=== PATIENT | female | born 1980 | race Caucasian/White ===

== ENCOUNTER 2016-07-14 08:15 | Emergency (ER) | payer OTHER ==
[2016-07-14 08:26] VITALS: BP 117/73
[2016-07-14] MEDS ORDERED: KETOROLAC TROMETHAMINE 30 MG/ML VIAL IV ONE (08:35)
[2016-07-14] MEDS ORDERED: NORMAL SALINE 1,000 ML in NORMAL SALINE 1,000 ML IV ONE (08:35)
--- NOTE | 2016-07-14 08:41 | ERNOTE ---
Medical Problem HPI - Narrative Date of Service: 07/14/16 - General Chief Complaint: General Assessment Time Seen by Provider: 07/14/16 08:30 Source: patient Exam Limitations: no limitations - Immun/Allergies/Home Medications Immunizations: IMMUNIZATION HX Immunizations Up to Date Yes History of Influenza Vaccine No Hx Pneumococcal Vaccination No Allergies/Adverse Reactions: Allergies hydrocodone bitartrate [From Vicodin] Allergy (Severe, Verified 07/14/16 08:28) low heart rate decreased heart rate strawberry Allergy (Severe, Verified 07/14/16 08:28) Anaphylaxis oxycodone HCl [From Percocet] Allergy (Verified 07/14/16 08:28) Low heart rate low heart rate sulfamethoxazole [From Bactrim] Allergy (Verified 07/14/16 08:28) Shortness of Breath trimethoprim [From Bactrim] Allergy (Verified 07/14/16 08:28) Shortness of Breath Home Medications: HOME MEDICATIONS Albuterol Sulfate [Proair Respiclick] 1 puff INH PRN PRN 02/14/16 [Last Taken Unknown] Acetaminophen [Tylenol] 1,000 mg PO Q6H PRN #0 tablet 02/16/16 [Last Taken Unknown] Budesonide [Pulmicort Flexhaler] 180 mcg IH DAILY 02/16/16 [Last Taken Unknown] Ibuprofen [Motrin] 800 mg PO Q6H PRN #0 tablet 02/16/16 [Last Taken Unknown] Doxycycline Monohydrate 250 mg PO BID 07/14/16 [Last Taken Unknown] L.acidoph & Paracasei,B.lactis [Probiotic] 1 each PO DAILY 07/14/16 [Last Taken Unknown] Ondansetron [Zofran Odt] 4 mg PO Q6H PRN #20 tab 07/14/16 [Last Taken Unknown] - History of Present History Narrative: Pt complains of generalized body aching with nausea and vomiting Timing: intermittent Severity: mild Review of Systems - Review of Systems Constitutional: Present: See HPI, other - pt also having intermittent vaginal bleeding with clotting since giving 4 months ago EYE: Present: no symptoms reported ENT: Present: no symptoms reported Respiratory: Present: no symptoms reported Cardiology: Present: no symptoms reported Gastrointestinal/Abdominal: Present: no symptoms reported Genitourinary: Present: no symptoms reported Musculoskeletal: Present: no symptoms reported Skin: Present: no symptoms reported Neurological: Present: no symptoms reported Endocrine: Present: no symptoms reported Hematologic/Lymphatic: Present: no symptoms reported Psych: Present: no symptoms reported - Patient's Past Medical History Patient History - Medical: No pertinent hx Patient History - Cardiac/Respiratory: No pertinent hx Patient History - Cancer: No Hx of Cancer Patient History - Surgical Procedures: D & C, Other - Social History Living Situations: home Smoking Status: Current every day smoker Have you smoked in the past 12 months: Yes Alcohol Use: none Drug Use: none Physical Exam - Physical Exam General Appearance: Present: wd/wn, alert, mild distress Eye Exam: Normal inspection: bilateral, PERRL: bilateral Ears, Nose, Throat: Present: normal ENT inspection, hearing grossly normal, normal pharynx Neck: Present: normal inspection, nontender Respiratory: Present: no respiratory distress, normal breath sounds, no accessory muscle use, chest nontender, lungs clear Cardiovascular/Chest: Present: regular rate, rhythm, no murmur, normal peripheral pulses Gastrointestinal/Abdominal: Present: normal bowel sounds, nondistended, soft, no organomegaly, tenderness Rectal Exam: Present: deferred Back Exam: Present: normal inspection, normal range of motion Extremity Exam: Present: normal inspection, non-tender, no edema, normal range of motion Neurological Exam: Present: alert, oriented, normal mood/affect Skin Exam: Present: normal color, warm/dry Lymphatic Exam: Present: no adenopathy ED Progress - Results and Orders Patient's Lab Results:: I have reviewed the patient's lab results. - Vital Signs Patient's Vital Signs:: I have reviewed the patient's vital signs. Vital Signs: Vital Signs 07/14/16 08:21 Temperature 36.9 C Pulse Rate 101 H Respiratory 16 Rate Blood Pressure 117/73 O2 Sat by Pulse 97 Oximetry - CT/Ultrasound CT/Ultrasound Narrative: I reviewed the ultrasound report and discussed with the patient. - Progress/Reassessment Chief Complaint: General Assessment Progress:: Improved - Transfer of Care Expected Disposition: Discharge Departure - Departure Clinical Impression: Gastroenteritis Disposition: Home self-care Condition: Good Instructions: Viral Gastroenteritis, Adult, [id number] Prescriptions: Ondansetron [Zofran Odt] 4 mg PO Q6H PRN #20 tab PRN Reason: Nausea And Vomiting
[2016-07-14 08:49] LABS: Hematocrit 42.5 % (37.0-47.0); Hemoglobin 14.6 gm/dL (12.5-16.0); Mean Cell Volume 93.8 fl (78-100); Mean Corpuscular Hemoglobin 32.2 pg (27-31); Mean Corpuscular Hgb Conc 34.4 g/dl (32-36); Mean Platelet Volume 9.5 fl (6.0-9.5); Neutrophil # 8.2 K/mm3 (1.3-6.0); Neutrophil % 82.7 % (42-75.0); Platelet Count 231 K/mm3 (150-450); Red Blood Count 4.53 M/mm3 (4.2-5.4); Red Cell Distribution Width 12.5 % (11.5-14.0); White Blood Count 9.9 K/mm3 (4.0-10.5)
[2016-07-14] MEDS ORDERED: KETOROLAC TROMETHAMINE 30 MG/ML VIAL ONE (08:55)
[2016-07-14 08:58] LABS: Urine Bilirubin Negative (NEGATIVE); Urine Blood 25 /ul (NEGATIVE); Urine Ketone Negative (NEGATIVE); Urine Nitrite Negative (NEGATIVE); Urine Protein Negative (NEGATIVE); Urine Specific Gravity 1.025 SP.GR. (1.005-1.010); Urine Urobilinogen Normal (NORMAL)
[2016-07-14 09:00] LABS: Urine Appearance Slightly Cloudy; Urine Color Yellow
[2016-07-14 09:02] LABS: Albumin * 3.4 gm/dl (3.4-5.0); Anion Gap 11.9 mmol/L (6.8-13.8); BUN/Creatinine Ratio 15.5 (9.0-21.6); Bilirubin, Total 0.7 mg/dL (0.0-1.1); Ca. Corrected For Albumin 8.8 mg/dL (8.4-10.2); Calcium * 8.6 mg/dL (7.9-10.9); Carbon Dioxide 28.4 mmol/L (24-32.6); Magnesium 1.8 mg/dL (1.2-2.8); Potassium 3.3 mmol/L (3.4-4.6); Total Protein 6.4 gm/dL (6.2-8.2)
[2016-07-14 09:06] LABS: Urine WBC TRACE /hpf (0-5)
[2016-07-14 09:07] LABS: Urine Bacteria TRACE; Urine Mucus Few - 1+
[2016-07-14] MEDS ORDERED: ONDANSETRON 4 MG TAB.RAPDIS PO ONE (10:27)
[2016-07-14] MEDS ORDERED: ONDANSETRON 4 MG TAB.RAPDIS ONE (10:28)
== END 2016-07-14 10:34 | disposition home or self-care (01) ==
LOC: ER 08:15
DX: K52.9 Noninfective gastroenteritis and colitis, unspecified (principal); F17.210 Nicotine dependence, cigarettes, uncomplicated